=== PATIENT | female | born 1975 | race Caucasian/White ===

== ENCOUNTER 2020-08-05 14:15 | Emergency (ER) | payer SELFPAY ==
[~2020-08-05] VITALS: Ht 162.6 cm; Wt 58.1 kg
[2020-08-05] MEDS ORDERED: SODIUM CHLORIDE 0.9% 1000ML 1,000 ML IV STA (15:43)
[2020-08-05 16:05] LABS: BASOPHILS % 0.4 % (0.0-1.0); EOSINOPHILS # (AUTO) 0.1 (0.0-0.4); EOSINOPHILS % 0.7 % (0.0-6.0); HEMATOCRIT 39.8 % (34.2-44.1); LYMPHOCYTES # (AUTO) 1.7 (1.0-3.2); LYMPHOCYTES % 15.3 % (18.0-39.1); MEAN CORPUSCULAR HEMOGLOBIN 28.9 pg (28-32); MEAN CORPUSCULAR HGB CONC 32.7 g/dL (31-35); MEAN CORPUSCULAR VOLUME 88.4 fL (81-99); MONOCYTES # (AUTO) 1.6 (0.2-0.8); NEUTROPHILS # (AUTO) 7.8 (2.1-6.9); NEUTROPHILS % 69.2 % (38.7-80.0); PLATELET COUNT 353 x10e3/uL (140-360); RED CELL DISTRIBUTION WIDTH 13.2 % (11.7-14.4)
[2020-08-05 16:09] LABS: INR 0.88; PROTHROMBIN TIME 12.4 seconds (11.9-14.5)
[2020-08-05 16:10] LABS: PARTIAL THROMBOPLASTIN TIME 27.2 seconds (23.8-35.5)
[2020-08-05 16:18] LABS: ALANINE AMINOTRANSFERASE 17 IU/L (0-55); ALBUMIN 3.7 g/dL (3.5-5.0); ALBUMIN/GLOBULIN RATIO 1.1 (0.8-2.0); ALKALINE PHOSPHATASE 103 IU/L (40-150); ANION GAP 16.5 mmol/L (8-16); BLOOD UREA NITROGEN 7 mg/dL (7-26); BUN/CREATININE RATIO 9 (6-25); CALCIUM 9.1 mg/dL (8.4-10.2); CARBON DIOXIDE 22 mmol/L (22-29); CHLORIDE 103 mmol/L (98-107); CREATINE KINASE 16 IU/L (29-168); CREATININE, SERUM 0.82 mg/dL (0.57-1.11); EST GLOMERULAR FILTRATION RATE > 60 ML/MIN (60-); GLUCOSE 101 mg/dL (74-118); MAGNESIUM 1.8 MG/DL (1.3-2.1); POTASSIUM 4.5 mmol/L (3.5-5.1); SODIUM 137 mmol/L (136-145)
[2020-08-05 16:32] LABS: BILIRUBIN,URINE NEGATIVE (NEGATIVE); CLARITY,URINE SL CLOUDY (CLEAR); COLOR,URINE YELLOW (YELLOW); KETONES,URINE NEGATIVE (NEGATIVE); LEUKOCYTE ESTERASE ,URINE SMALL (NEGATIVE); NITRITE,URINE POSITIVE (NEGATIVE); PROTEIN,URINE DIPSTICK NEGATIVE (NEGATIVE); URINE UROBILINOGEN 0.2 mg/dL (0.2 - 1)
[2020-08-05 16:38] LABS: AMPHETAMINES SCREEN,URINE NEGATIVE (NEGATIVE); BENZODIAZEPINES SCREEN,URINE POSITIVE (NEGATIVE); PHENCYCLIDINE SCREEN,URINE NEGATIVE (NEGATIVE)
[2020-08-05 16:45] LABS: BACTERIA,URINE MANY /HPF; RBC,URINE 0-5 /HPF (0-5)
--- NOTE | 2020-08-05 16:56 | Diagnostic Imaging Report ---
TECHNIQUE: Frontal view of the chest. INDICATION: ^DIZZY ^[id number] ^[id number] COMPARISON: None DISCUSSION: Limited evaluation due to portable technique. Lines and hardware: Overlying EKG leads are noted Heart and mediastinum: Cardiomediastinal silhouette and hilar contours are within normal limits. Lungs and pleura: No focal airspace consolidation. No pleural effusion. No pneumothorax. Soft tissues and bones: No acute abnormality. IMPRESSION: Negative for acute intrathoracic process. Signed by: Sameer Lagos MD on 08/05/2020 4:52 PM
--- NOTE | 2020-08-05 17:53 | Diagnostic Imaging Report ---
EXAMINATION: Head CT HISTORY: 45-year-old female with dizziness, headache COMPARISON: None. TECHNIQUE: Helical axial images of the head were obtained. Dose modulation, iterative reconstruction, and/or weight based adjustment of the mA/kV was utilized to reduce the radiation dose to as low as reasonably achievable. FINDINGS: Parenchyma: 1. No abnormal densities. 2. No mass or hemorrhage. No CT evidence of acute territorial vascular insult. Extra-axial spaces:No abnormal density. No extra-axial fluid collections Brain volume: Normal for age. Ventricles: No hydrocephalus or displacement. Arteries: No density suggestive of thrombus. Dural sinuses: No abnormal density. Foramen magnum: No mass, Chiari malformation, or basilar invagination. Sella: No obvious mass. Paranasal/mastoid sinuses: Partial opacification with bubbly appearing material of the left maxillary sinus which may be related to acute sinusitis. Skull/Scalp: No lytic or blastic lesions. No fractures. IMPRESSION: 1. No intracranial abnormalities. 2. Partial opacification of the left maxillary sinus, possible acute sinusitis. Signed by: Dr. Hanny Rock M.D. on 08/05/2020 5:49 PM
[2020-08-05] MEDS ORDERED: KETOROLAC TROMETHAMINE 30 MG/ML VIAL IV STA (18:19)
[2020-08-05] MEDS ORDERED: METOCLOPRAMIDE HCL 10 MG/2ML VIAL IV ONE (18:30)
[2020-08-05] MEDS ORDERED: DIPHENHYDRAMINE HCL INJ 50 MG/ML VIAL IV ONE (18:30)
[2020-08-05] MEDS ORDERED: CEFTRIAXONE SOD 1 GM/NS 50 ML 50 ML IV ONE (18:30)
[2020-08-05] MEDS ORDERED: SODIUM CHLORIDE 0.9% 500ML 500 ML IV ONE (18:30)
--- NOTE | 2020-08-05 19:06 | Emergency Department Note ---
History of Present Illnes History of Present Illness Chief Complaint: General Medicine Complaints History of Present Illness This is a 45 year old female Patient in from home with complaints of dizziness, vertigo, short term memory loss and severe right sided headache for the past two weeks. Patient reports blurred vision and difficulty concentrating. Historian: Patient Arrival Mode: Car Customer Support Technician Required: No Onset (how long ago): week(s) (2) Location: right head Quality: ache Radiation: Reports non-radiation Severity: severe Onset quality: gradual Timing of current episode: intermittent Progression: waxing and waning Chronicity: recurrent Context: Denies recent illness Relieving factors: none Exacerbating factors: none Associated symptoms: Reports denies other symptoms; Denies chest pain, Denies cough Past Medical/Family History Physician Review I have reviewed the patient's past medical and family history. Any updates have been documented here. Past Medical History Recent Fever: No Clinical Suspicion of Infectio: No New/Unexplained Change in Ment: No Past Medical History: Hypothyroidism, Anxiety, Other Mental Illness Other Medical History: Panic attacks Bilateral pneumothorax Past Surgical History: Hysterectomy Social History Smoking Cessation: Never Smoker Counseling Performed: No Alcohol Use: None Any Illegal Drug Use: No TB Exposure/Symptoms: No Physically hurt or threatened: No Family History Family history of heart diseas: No Other Any Pre-Existing Lines (PICC,: No Review of Systems Review of Systems Constitutional: Reports as per HPI EENTM: Reports no symptoms Cardiovascular: Reports no symptoms Respiratory: Reports no symptoms Gastrointestinal: Reports no symptoms Genitourinary: Reports no symptoms Musculoskeletal: Reports no symptoms Integumentary: Reports no symptoms Neurological: Reports as per HPI, Reports headache, Reports other (dizzy) Psychological: Reports no symptoms Endocrine: Reports no symptoms Hematological/Lymphatic: Reports no symptoms Physical Exam Related Data Allergies: Coded Allergies: No Known Allergies (Unverified , 08/05/20) Triage Vital Signs Vital Signs Date Time Temp Pulse Resp B/P (MAP) Pulse Ox O2 Delivery O2 Flow Rate FiO2 08/05/20 14:50 97.1 129 17 117/83 100 Room Air Vital signs reviewed: Yes Physical Exam CONSTITUTIONAL Constitutional: Present well-developed, Present well-nourished HENT HENT: Present normocephalic, Present atraumatic, Present oropharynx clear/moist, Present nose normal HENT L/R: Present left TM normal, Present right TM normal, Present left ext ear normal, Present right ext ear normal EYES Eyes: Reports PERRL, Reports conjunctivae normal NECK Neck: Present ROM normal, Present supple; Absent carotid bruit PULMONARY Pulmonary: Present effort normal, Present breath sounds normal CARDIOVASCULAR Cardiovascular: Present regular rhythm, Present heart sounds normal, Present capillary refill normal, Present tachycardia GASTROINTESTINAL Abdominal: Present soft, Present nontender, Present bowel sounds normal GENITOURINARY Genitourinary: Present exam deferred SKIN Skin: Present warm, Present dry MUSCULOSKELETAL Musculoskeletal: Present ROM normal NEUROLOGICAL Neurological: Present alert, Present oriented x 3, Present DTRs normal, Present no gross motor or sensory deficits; Absent cranial nerve deficit, Absent sensory deficit, Absent abnormal DTRs, Absent abnormal coordination, Absent abnormal gait, Absent weakness PSYCHOLOGICAL Psychological: Present mood/affect normal, Present judgement normal Results Laboratory Result Diagram: 08/05/20 1509 08/05/20 1509 Laboratory Laboratory Tests Test 08/05/20 16:04 08/05/20 15:09 Urine Color Yellow (YELLOW) Urine Clarity Sl cloudy (CLEAR) Urine pH 6 (5 - 7) Urine Specific [place] 1.025 (1.010-1.025) Urine Protein Negative (NEGATIVE) Urine Glucose (UA) Negative (NEGATIVE) Urine Ketones Negative (NEGATIVE) Urine Blood Trace (NEGATIVE) Urine Nitrite Positive (NEGATIVE) Urine Bilirubin Negative (NEGATIVE) Urine Urobilinogen 0.2 mg/dL (0.2 - 1) Urine Leukocyte Esterase Small (NEGATIVE) Urine RBC 0-5 /HPF (0-5) Urine WBC 11-20 /HPF (0-5) Urine Epithelial Cells None /LPF (NONE) Urine Bacteria Many /HPF (NONE) Urine Opiates Screen Negative (NEGATIVE) Urine Methadone Screen Negative (NEGATIVE) Urine Barbiturates Screen Negative (NEGATIVE) Urine Phencyclidine Screen Negative (NEGATIVE) Urine Amphetamines Screen Negative (NEGATIVE) Urine Methamphetamines Screen Positive (NEGATIVE) Urine Benzodiazepines Screen Positive (NEGATIVE) Urine Cocaine Screen Negative (NEGATIVE) Urine Cannabinoids Screen Negative (NEGATIVE) White Blood Count 11.27 x10e3/uL (4.8-10.8) Red Blood Count 4.50 x10e6/uL (3.6-5.1) Hemoglobin 13.0 g/dL (12.0-16.0) Hematocrit 39.8 % (34.2-44.1) Mean Corpuscular Volume 88.4 fL (81-99) Mean Corpuscular Hemoglobin 28.9 pg (28-32) Mean Corpuscular Hemoglobin Concent 32.7 g/dL (31-35) Red Cell Distribution Width 13.2 % (11.7-14.4) Platelet Count 353 x10e3/uL (140-360) Neutrophils (%) (Auto) 69.2 % (38.7-80.0) Lymphocytes (%) (Auto) 15.3 % (18.0-39.1) Monocytes (%) (Auto) 14.0 % (4.4-11.3) Eosinophils (%) (Auto) 0.7 % (0.0-6.0) Basophils (%) (Auto) 0.4 % (0.0-1.0) Neutrophils # (Auto) 7.8 (2.1-6.9) Lymphocytes # (Auto) 1.7 (1.0-3.2) Monocytes # (Auto) 1.6 (0.2-0.8) Eosinophils # (Auto) 0.1 (0.0-0.4) Basophils # (Auto) 0.0 (0.0-0.1) Absolute Immature Granulocyte (auto 0.04 x10e3/uL (0-0.1) Prothrombin Time 12.4 seconds (11.9-14.5) Prothromb Time International Ratio 0.88 Activated Partial Thromboplast Time 27.2 seconds (23.8-35.5) Sodium Level 137 mmol/L (136-145) Potassium Level 4.5 mmol/L (3.5-5.1) Chloride Level 103 mmol/L (98-107) Carbon Dioxide Level 22 mmol/L (22-29) Anion Gap 16.5 mmol/L (8-16) Blood Urea Nitrogen 7 mg/dL (7-26) Creatinine 0.82 mg/dL (0.57-1.11) Estimat Glomerular Filtration Rate > 60 ML/MIN (60-) BUN/Creatinine Ratio 9 (6-25) Glucose Level 101 mg/dL (74-118) Calcium Level 9.1 mg/dL (8.4-10.2) Magnesium Level 1.8 MG/DL (1.3-2.1) Total Bilirubin 0.1 mg/dL (0.2-1.2) Aspartate Amino Transf (AST/SGOT) 13 IU/L (5-34) Alanine Aminotransferase (ALT/SGPT) 17 IU/L (0-55) Alkaline Phosphatase 103 IU/L (40-150) Creatine Kinase 16 IU/L (29-168) Creatine Kinase MB 0.30 ng/mL (0-5.0) Troponin I 0.010 ng/mL (0-0.300) Total Protein 7.0 g/dL (6.5-8.1) Albumin 3.7 g/dL (3.5-5.0) Globulin 3.3 g/dL (2.3-3.5) Albumin/Globulin Ratio 1.1 (0.8-2.0) Laboratory Tests Test 08/05/20 16:04 08/05/20 15:09 Urine Color Yellow (YELLOW) Urine Clarity Sl cloudy (CLEAR) Urine pH 6 (5 - 7) Urine Specific Carson 1.025 (1.010-1.025) Urine Protein Negative (NEGATIVE) Urine Glucose (UA) Negative (NEGATIVE) Urine Ketones Negative (NEGATIVE) Urine Blood Trace (NEGATIVE) Urine Nitrite Positive (NEGATIVE) Urine Bilirubin Negative (NEGATIVE) Urine Urobilinogen 0.2 mg/dL (0.2 - 1) Urine Leukocyte Esterase Small (NEGATIVE) Urine RBC 0-5 /HPF (0-5) Urine WBC 11-20 /HPF (0-5) Urine Epithelial Cells None /LPF (NONE) Urine Bacteria Many /HPF (NONE) Urine Opiates Screen Negative (NEGATIVE) Urine Methadone Screen Negative (NEGATIVE) Urine Barbiturates Screen Negative (NEGATIVE) Urine Phencyclidine Screen Negative (NEGATIVE) Urine Amphetamines Screen Negative (NEGATIVE) Urine Methamphetamines Screen Positive (NEGATIVE) Urine Benzodiazepines Screen Positive (NEGATIVE) Urine Cocaine Screen Negative (NEGATIVE) Urine Cannabinoids Screen Negative (NEGATIVE) White Blood Count 11.27 x10e3/uL (4.8-10.8) Red Blood Count 4.50 x10e6/uL (3.6-5.1) Hemoglobin 13.0 g/dL (12.0-16.0) Hematocrit 39.8 % (34.2-44.1) Mean Corpuscular Volume 88.4 fL (81-99) Mean Corpuscular Hemoglobin 28.9 pg (28-32) Mean Corpuscular Hemoglobin Concent 32.7 g/dL (31-35) Red Cell Distribution Width 13.2 % (11.7-14.4) Platelet Count 353 x10e3/uL (140-360) Neutrophils (%) (Auto) 69.2 % (38.7-80.0) Lymphocytes (%) (Auto) 15.3 % (18.0-39.1) Monocytes (%) (Auto) 14.0 % (4.4-11.3) Eosinophils (%) (Auto) 0.7 % (0.0-6.0) Basophils (%) (Auto) 0.4 % (0.0-1.0) Neutrophils # (Auto) 7.8 (2.1-6.9) Lymphocytes # (Auto) 1.7 (1.0-3.2) Monocytes # (Auto) 1.6 (0.2-0.8) Eosinophils # (Auto) 0.1 (0.0-0.4) Basophils # (Auto) 0.0 (0.0-0.1) Absolute Immature Granulocyte (auto 0.04 x10e3/uL (0-0.1) Prothrombin Time 12.4 seconds (11.9-14.5) Prothromb Time International Ratio 0.88 Activated Partial Thromboplast Time 27.2 seconds (23.8-35.5) Sodium Level 137 mmol/L (136-145) Potassium Level 4.5 mmol/L (3.5-5.1) Chloride Level 103 mmol/L (98-107) Carbon Dioxide Level 22 mmol/L (22-29) Anion Gap 16.5 mmol/L (8-16) Blood Urea Nitrogen 7 mg/dL (7-26) Creatinine 0.82 mg/dL (0.57-1.11) Estimat Glomerular Filtration Rate > 60 ML/MIN (60-) BUN/Creatinine Ratio 9 (6-25) Glucose Level 101 mg/dL (74-118) Calcium Level 9.1 mg/dL (8.4-10.2) Magnesium Level 1.8 MG/DL (1.3-2.1) Total Bilirubin 0.1 mg/dL (0.2-1.2) Aspartate Amino Transf (AST/SGOT) 13 IU/L (5-34) Alanine Aminotransferase (ALT/SGPT) 17 IU/L (0-55) Alkaline Phosphatase 103 IU/L (40-150) Creatine Kinase 16 IU/L (29-168) Creatine Kinase MB 0.30 ng/mL (0-5.0) Troponin I 0.010 ng/mL (0-0.300) Total Protein 7.0 g/dL (6.5-8.1) Albumin 3.7 g/dL (3.5-5.0) Globulin 3.3 g/dL (2.3-3.5) Albumin/Globulin Ratio 1.1 (0.8-2.0) Lab results reviewed: Yes Imaging Imaging results reviewed: Yes Procedures 12 Lead ECG Interpretation ECG Interpretation : ECG: ECG 1 Customer Support Technician: Interpreted by ED physician Date: Aug 05, 2020 Time: 14:57 Rhythm: sinus tachycardia Rate: tachycardia (117) QRS axis: normal ST segments normal: Yes T waves normal: Yes Clinical Impression: abnormal ECG Assessment & Plan Medical Decision Making [facility] Pt with headache, tachycardia, dizzy x 2wks - cbc, chem, ua, cxr, ecg, cardiacs, urine cx, uds, ct head - r/o dehydration, uti, drug use, electrolyte abnl, stemi/nstemi, cerebral bleed, cva Reassessment Reassessment improved with IVF's, meds. DC home with Ceftin 500 BID x 10 days, DC drug use, f/u PCP, Tylenol/Motrin as directed for pain Assessment & Plan Final Impression: (1) Drug use (2) UTI (urinary tract infection) Depart Disposition: HOME, SELF-CARE Last Vital Signs Date Time Temp Pulse Resp B/P (MAP) Pulse Ox O2 Delivery O2 Flow Rate FiO2 08/05/20 18:44 97 18 116/82 100 Room Air 08/05/20 16:51 98.5 Medications in the ED Sodium Chloride 1,000 ml @ 0 mls/hr Q0M STAT IV Last administered on 08/05/20at 16:23; Admin Dose 999 MLS/HR; Start 08/05/20 at 15:43; Stop 08/05/20 at 15:58; Status DC Sodium Chloride 500 ml @ 0 mls/hr Q0M ONCE IV Last administered on 08/05/20at 18:27; Admin Dose 499 MLS/HR; Start 08/05/20 at 18:30; Stop 08/05/20 at 18:31; Status DC Ketorolac Tromethamine 30 mg ONCE STAT IV Last administered on 08/05/20at 18:42; Admin Dose 30 MG; Start 08/05/20 at 18:19; Stop 08/05/20 at 18:26; Status DC Metoclopramide HCl 5 mg ONCE ONCE IV Last administered on 08/05/20at 18:43; Admin Dose 5 MG; Start 08/05/20 at 18:30; Stop 08/05/20 at 18:31; Status DC Diphenhydramine HCl 25 mg NOW ONCE IV Last administered on 08/05/20at 18:43; Admin Dose 25 MG; Start 08/05/20 at 18:30; Stop 08/05/20 at 18:31; Status DC Ceftriaxone Sodium 50 ml @ 100 mls/hr ONCE ONCE IV Last administered on 08/05/20at 18:43; Admin Dose 100 MLS/HR; Start 08/05/20 at 18:30; Stop 08/05/20 at 18:59 BORIS ESPINOZA MD Aug 05, 2020 19:06
[2020-08-05 19:11] VITALS: BP 106/70
== END 2020-08-05 19:30 | disposition home or self-care (01) ==
LOC: ER 15:50
DX: R42 Dizziness and giddiness (principal); N39.0 Urinary tract infection, site not specified; R51 Headache; F15.90 Other stimulant use, unspecified, uncomplicated; F13.90 Sedative, hypnotic, or anxiolytic use, unspecified, uncomplicated; E03.9 Hypothyroidism, unspecified; F41.9 Anxiety disorder, unspecified; R94.31 Abnormal electrocardiogram [ECG] [EKG]
CPT/HCPCS: 36415; 70450; 71045; 80053; 80307; 81001; 82550; 82553; 83735; 84484; 85025; 85610; 85730; 87086; 87186; 93005; 99284; J0696; J1200; J1885; J2765; J7030; J7040

== ENCOUNTER 2024-09-05 07:12 | Emergency (ER) | payer OTHER ==
[~2024-09-05] VITALS: Ht 162.6 cm; Wt 58.1 kg
[2024-09-05 07:14] VITALS: PULSE 104; RESP 23; TEMP 97.8; O2SAT 99
== END 2024-09-05 07:46 | disposition home or self-care (01) ==
LOC: ER 07:26
DX: L02.31 Cutaneous abscess of buttock (principal); E03.9 Hypothyroidism, unspecified; F41.9 Anxiety disorder, unspecified; F41.0 Panic disorder [episodic paroxysmal anxiety]
CPT/HCPCS: 99283